=== PATIENT | female | born 1975 | race Caucasian/White ===

== ENCOUNTER → 2017-03-02 | Day surgery (SDC) | payer MEDICAID ==
[~2017-03-02] MED LIST: Acetaminophen/HYDROcodone 325-5 MG Tab PO PRN; Bupivacaine 0.25%/EPINEPHrine 1:200,000 10 ML SDV INJECT ONE; Bupivacaine 0.25%/EPINEPHrine 1:200,000 10 ML SDV ONE; Dexamethasone 4 MG/ML SDV IV ONE; Glycopyrrolate 0.2 MG/ML SDV IVPUSH ONE; Ketorolac 30 MG/ML SDV IVPUSH ONE; Lactated Ringers 1,000 ML IV SCH; Lidocaine 2% 20 ML MDV INJECT ONE; Lidocaine 2% 20 ML MDV ONE; Morphine 4 MG/ML Syringe IVPUSH PRN; Neostigmine Methylsulfate 10 MG/10 ML MDV IV ONE; Ondansetron 4 MG/2 ML SDV IV ONE; Ondansetron 4 MG/2 ML SDV IVPUSH PRN; Propofol 200 MG/20 ML SDV IV ONE; Rocuronium 50 MG/5 ML Vial IV ONE; Scopolamine 1.5 MG Transdermal Patch TRDERM PRN; Succinylcholine 200 MG/10 ML MDV IV ONE; ceFAZolin 1 GM Vial IVPUSH ONE; fentaNYL 100 MCG/2 ML SDV IV ONE
[2017-03-02 19:01] VITALS: BP 112/74
--- NOTE | 2017-03-03 09:02 | OR ---
DATE OF OPERATION: 03/02/2017 PREOPERATIVE DIAGNOSIS: CHRONIC CHOLECYSTITIS. POSTOPERATIVE DIAGNOSIS: CHRONIC CHOLECYSTITIS. SURGEON: Marcell Angeles MD PROCEDURE: LAPAROSCOPIC CHOLECYSTECTOMY. ANESTHESIA: General. DESCRIPTION OF PROCEDURE: After patient was anesthetized satisfactorily, the patient's abdomen was prepped with iodoform. The patient was given sterile drapes. A small skin incision was made in the subxiphoid space. The deep fascia was divided and the rectus abdominis muscle was split in the direction of its fibers and posterior sheath and peritoneum were opened. An 11 mm blunt trocar was introduced. CO2 gas was insufflated. Camera was introduced. There were quite a few adhesions from patient's previous surgery. These adhesions were avoided. Another 11 mm trocar was introduced in the midline and a 5 mm in the right upper quadrant. Gallbladder was held in position, dissection was done, cystic duct and cystic artery were exposed, they were both dissected out and junction of the cystic duct with common bile duct and gallbladder were exposed. Cystic duct and cystic artery were clipped and divided. Then, gallbladder was taken off its bed with the help of hook cautery and removed from the peritoneal cavity using Endopouch. Irrigation was done. Hemostasis was satisfactory and then the fascia of the subxiphoid space incision was closed with 0 Ethibond interrupted sutures. Skin was closed with 4-0 Vicryl subcuticular sutures. The patient was given sterile dressing. She tolerated the procedure well and left the operating room in satisfactory condition. JONES/HOWARD /[id number]
== END ==
LOC: CC.SDS 11:19
PROVIDERS: ATTEND Surgery
DX: K81.1 Chronic cholecystitis (principal); K66.0 Peritoneal adhesions (postprocedural) (postinfection); F17.210 Nicotine dependence, cigarettes, uncomplicated; Z79.899 Other long term (current) drug therapy; Z98.890 Other specified postprocedural states
CPT/HCPCS: 47562; A9270; J0330; J0690; J1100; J1885; J2270; J2405; J2704; J2710; J3010; J7120

== ENCOUNTER 2017-07-05 18:57 | Emergency (ER) | payer MEDICAID ==
[2017-07-05] MEDS ORDERED: Acetaminophen/HYDROcodone 325-5 MG Tab PO ONE (18:58)
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
[2017-07-05] MEDS ORDERED: Take Home: Acetaminophen/HYDROcodone 325-5 MG, 2 Tab Pack PO ONE (19:15)
[2017-07-05 20:03] VITALS: BP 134/68
== END 2017-07-05 19:35 | disposition home or self-care (01) ==
LOC: CC.ED 18:57
DX: S80.12XA Contusion of left lower leg, initial encounter (principal); Z79.899 Other long term (current) drug therapy; F17.210 Nicotine dependence, cigarettes, uncomplicated; J45.909 Unspecified asthma, uncomplicated; X50.1XXA Overexertion from prolonged static or awkward postures, initial encounter
CPT/HCPCS: 73590-LT; 99283; A9270-GY